=== PATIENT | female | born 1975 | race Caucasian/White ===

== ENCOUNTER → 2020-08-27 08:32 | Outpatient (BNVA) | payer BC, SELFPAY | PROVIDERS: PCP Family Medicine; Visit Provider Specialist | DX: R26.81 Unsteadiness on feet (principal); R26.9 Unspecified abnormalities of gait and mobility; R20.0 Anesthesia of skin; R20.2 Paresthesia of skin; G47.19 Other hypersomnia; E66.01 Morbid (severe) obesity due to excess calories; Z68.42 Body mass index [BMI] 45.0-49.9, adult | CPT/HCPCS: 99204 ==